=== PATIENT | male | born 1985 | race Caucasian/White ===

== ENCOUNTER 2021-11-21 07:35 | Emergency (ER) | payer OTHER ==
[2021-11-21 07:53] VITALS: BMI 22.8
[2021-11-21] MEDS ORDERED: ACETAMINOPHEN 1000 MG/100 ML BAG IVPB ONE (08:35)
[2021-11-21] MEDS ORDERED: SODIUM CHLORIDE 0.9% 1000 ML INFUS.BAG IV ONE (08:35)
[2021-11-21] MEDS ORDERED: KETOROLAC TROMETHAMINE 30 MG/1 ML VIAL IVPUSH ONE (08:35)
[2021-11-21] MEDS ORDERED: ACETAMINOPHEN INJECTION 100 ML IVPB ONE (08:45)
[2021-11-21] MEDS ORDERED: KETOROLAC TROMETHAMINE 30 MG/1 ML VIAL ONE (08:45)
[2021-11-21 09:04] LABS: BASO % 0.8 % (0-2.0); EOS % 3.1 % (0-4.5); HEMATOCRIT 39.4 % (35.4-49); HEMOGLOBIN 13.6 GM/dL (11.7-16.9); LYMPH % 20.8 % (8-40); MCHC 34.5 g/dl (32.0-35.9); MEAN CELL VOLUME 84.1 fl (80-96); MEAN PLT VOLUME 7.5 fl (7.5-11.1); MONO % 10.5 % (3.8-10.2); NEUT % 64.8 % (42.8-82.8); PLATELET COUNT 402 10^3/uL (134-434); RBC 4.68 M/mm3 (4.00-5.60); WHITE BLOOD COUNT 6.3 K/mm3 (4.0-10.0)
[2021-11-21 09:31] LABS: ALBUMIN 4.5 g/dl (3.4-5.0); BLOOD UREA NITROGEN 8.5 mg/dL (7-18)
[2021-11-21 09:35] LABS: CREATININE 0.9 mg/dL (0.55-1.3)
[2021-11-21 09:36] LABS: BILIRUBIN,TOTAL 0.4 mg/dL (0.2-1); TOT PROT 7.9 g/dl (6.4-8.2)
[2021-11-21 12:50] VITALS: BP 111/65; PULSE 67; TEMP 97.6
== END 2021-11-21 13:21 | disposition home or self-care (01) ==
LOC: JER 07:35
PROC: 3E0333Z Introduction of Anti-inflammatory into Peripheral Vein, Percutaneous Approach (ICD-10-PCS; principal; 2021-11-21)
PROC: 3E0333Z Introduction of Anti-inflammatory into Peripheral Vein, Percutaneous Approach (ICD-10-PCS; 2021-11-21)
DX: R55 Syncope and collapse (principal)
CPT/HCPCS: 36415; 70450-TC; 72193-TC; 80053; 85025; 93005; 93010; 99285-25; Q9967

== ENCOUNTER 2021-12-10 04:10 | Day surgery (SDC) | payer OTHER ==
[2021-12-05 15:54] VITALS: BMI 22.1
[2021-12-10] MEDS ORDERED: TRIAMCINOLONE ACET 40MG/1ML VIAL ONE (07:22)
[2021-12-10] MEDS ORDERED: BUPIVACAINE HCL/PF 0.25% (2.5MG/ML) 10 ML VIAL ONE (07:22)
[2021-12-10] MEDS ORDERED: LIDOCAINE HCL/PF 1% SDV 5ML VIAL ONE (07:22)
[2021-12-10] MEDS ORDERED: DEXAMETHASONE SOD PHOSPHATE 10 MG/1 ML VIAL ONE (07:46)
[2021-12-10] MEDS ORDERED: SODIUM CHLORIDE 0.9% P/F 10 ML VIAL IJ ONE (07:47)
[2021-12-10 15:10] VITALS: TEMP 98.6
[2021-12-10] MEDS ORDERED: LIDOCAINE HCL 1% PRESERVATIVE FREE - 30ML VIAL IJ ONE ×2 (15:36→15:37)
[2021-12-10] MEDS ORDERED: IOHEXOL 180 MG/1 ML ML IJ ONE (15:36)
[2021-12-10] MEDS ORDERED: BUPIVACAINE HCL/PF 0.25% (2.5MG/ML) 10 ML VIAL IJ ONE ×2 (15:37→15:40)
[2021-12-10 17:59] VITALS: BP 120/80; PULSE 90
== END 2021-12-10 16:00 | disposition home or self-care (01) ==
LOC: JASU-SURG 04:10
PROVIDERS: ATTEND Pain Medicine Pain Medicine
PROC: BQ40ZZZ Ultrasonography of Right Hip (ICD-10-PCS; 2021-12-10)
PROC: 3E0U3BZ Introduction of Anesthetic Agent into Joints, Percutaneous Approach (ICD-10-PCS; principal; 2021-12-10 15:27)
DX: M25.551 Pain in right hip (principal)
CPT/HCPCS: 76000-TC-FY; J1100